=== PATIENT | female | born 1955 | race Caucasian/White ===

== ENCOUNTER → 2017-10-25 11:38 | Outpatient (CLI) | payer OTHER, SELFPAY ==
--- NOTE | 2017-10-25 | DI.MG.S_ITS ---
BILATERAL DIGITAL SCREENING MAMMOGRAM 3D/2D WITH CAD: 10/25/2017 CLINICAL: Routine screening. Personal history of breast cancer. Comparison is made to exams dated: 07/09/2017 mammogram, 12/30/2016 mammogram, 11/18/2016 mammogram, and 10/09/2016 mammogram - [facility]. There are scattered fibroglandular elements in both breasts. Current study was also evaluated with a Computer Aided Detection (CAD) system. There is a linear scar marker overlying the upper inner right breast. There are underlying postsurgical changes including multiple surgical clips and a large post-surgical seroma. There is also diffuse right breast skin thickening and edema. No significant masses, calcifications, or other findings are seen in either breast. IMPRESSION: BENIGN Postsurgical changes of the right breast. There is no mammographic evidence of malignancy. A 1 year screening mammogram is recommended. This exam was interpreted at Station ID: [id number]. NOTE: For mammograms, a report in lay terms will be sent to the patient. Approximately 15% of breast malignancies will not be visualized mammographically. In the management of a palpable breast mass, a negative mammogram must not discourage biopsy of a clinically suspicious lesion. Electronically Signed By: Seth Hess M.D. ecl/:10/25/2017 20:22:19 copy to: Viky Lassiter letter sent: Normal Exam ACR BI-RADS Category 2: Benign Finding(s) 3342F
== END ==
PROVIDERS: PCP Family Medicine; Visit Provider Family Medicine
DX: Z12.31 Encounter for screening mammogram for malignant neoplasm of breast (principal); Z85.3 Personal history of malignant neoplasm of breast
CPT/HCPCS: 77063; 77067

== ENCOUNTER → 2017-11-18 13:00 | Outpatient (CLI) | payer OTHER, SELFPAY | PROVIDERS: PCP Family Medicine | DX: Z23 Encounter for immunization (principal) | CPT/HCPCS: 90471; 90686 ==

== ENCOUNTER → 2018-01-11 08:01 | Outpatient (REF) | payer OTHER, SELFPAY ==
[2018-01-11 08:38] LABS: Cholesterol 194 mg/dL (140-199); HDL Cholesterol 59 mg/dL (40-60); LDL Cholesterol Calculated 112 mg/dL (<100); Triglycerides 114 mg/dL (35-150)
[2018-01-11 10:27] LABS: Thyroid Stimulating Hormone 0.91 uIU/mL (0.47-4.68)
== END ==
LOC: LAB 08:01
PROVIDERS: PCP Family Medicine; Visit Provider Family Medicine
DX: E78.5 Hyperlipidemia, unspecified (principal)
CPT/HCPCS: 80061; 84443

== ENCOUNTER → 2018-02-01 13:22 | Outpatient (CLI) | payer OTHER, SELFPAY | PROVIDERS: PCP Family Medicine; Visit Provider Physician Assistant | DX: R39.9 Unspecified symptoms and signs involving the genitourinary system (principal) | CPT/HCPCS: 87077; 87086; 87186 ==

== ENCOUNTER → 2018-04-29 07:15 | Outpatient (REF) | payer OTHER, SELFPAY ==
[2018-04-29 07:27] LABS: Add Manual Diff / Slide Review NO; Basophils Absolute Auto 100 /uL (0-100); Basophils Percent Auto 1.3 % (0-2); Eosinophils Absolute Auto 500 /uL (0-450); Eosinophils Percent Auto 10.5 % (2-4); Hematocrit 38.2 % (36-46); Hemoglobin 12.9 g/dL (12.0-16.0); Lymphocytes Absolute Auto 1200 /uL (1100-4500); Lymphocytes Percent Auto 22.6 % (25-40); Mean Corpuscular HGB Conc 33.8 % (30-36); Mean Corpuscular Hemoglobin 31.1 PG (26-34); Monocytes Absolute Auto 400 /uL (0-900); Monocytes Percent Auto 8.6 % (3-14); Neutrophils Absolute Auto 2900 /uL (1500-7000); Platelet Count 195 X10^3/uL (150-400); Red Blood Cell Count 4.15 X10^6/uL (4.0-5.2); Red Cell Distribution Width 13.1 % (11.6-14.8); White Blood Cell Count 5.2 X10^3/uL (4.5-11.0)
[2018-04-29 07:32] LABS: Alanine Aminotransferase 27 IU/L (9-52); Albumin 4.1 g/dL (3.5-5.0); Albumin Globulin Ratio 1.5 (1.0-2.8); Alkaline Phosphatase 65 U/L (38-126); Aspartate Aminotransferase 22 IU/L (14-36); Bilirubin Total 0.4 mg/dL (0.2-1.3); Blood Urea Nitrogen 15 mg/dL (7-17); Carbon Dioxide 32 mmol/L (22-32); Chloride 102 mmol/L (98-107); Estimated Glomerular Filt Rate > 60.0 mL/min (>60); Globulin 2.7 g/dL (1.7-4.1); Glucose 106 mg/dL (80-110); HEMOLYSIS < 15 (0-50); Potassium 3.7 mmol/L (3.4-5.1); Sodium 141 mmol/L (137-145); Total Protein 6.8 g/dL (6.3-8.2)
--- NOTE | 2018-04-29 09:57 | PC.NURSE ---
labs stable, provider visit on 05/03
== END ==
LOC: LAB 07:15
PROVIDERS: PCP Family Medicine; Visit Provider Nurse Practitioner Gerontology
DX: C50.911 Malignant neoplasm of unspecified site of right female breast (principal)
CPT/HCPCS: 36415; 80053; 85025

== ENCOUNTER → 2018-06-03 10:27 | Outpatient (CLI) | payer OTHER, SELFPAY ==
--- NOTE | 2018-06-03 10:29 | DI.MG.S_ITS ---
UNILATERAL RIGHT DIGITAL DIAGNOSTIC MAMMOGRAM 3D/2D POST LUMPECTOMY: 06/03/2018 CLINICAL: Right breast cancer surveillance. Comparison is made to exams dated: 10/25/2017 mammogram, 07/09/2017 mammogram, and 12/30/2016 mammogram - [facility]. There are scattered fibroglandular elements in right breast. There is an oval equal density asymmetry with an indistinct margin in the right breast at 1 o'clock posterior depth. This is not significantly changed. There are surgical clips, a seroma, architectural distortion, a post-surgical scar, skin retraction, and trabecular thickening associated with the asymmetry. No other significant masses or calcifications are seen in the breast. IMPRESSION: The oval equal density asymmetry in the right breast is consistent with a post-surgical scar and is benign. There is no mammographic evidence of malignancy. Return to annual mammogram screening schedule is recommended. This exam was interpreted at Station ID: [id number]. NOTE: For mammograms, a report in lay terms will be sent to the patient. Approximately 15% of breast malignancies will not be visualized mammographically. In the management of a palpable breast mass, a negative mammogram must not discourage biopsy of a clinically suspicious lesion. Electronically Signed By: Flo Troy M.D. ddp/bela:06/03/2018 10:57:14 copy to: CHARLIE SANTANA copy to: Arlet Dominguez M.D., [facility] [place] [facility], ph: [phone], fax: [phone] letter sent: Normal Exam ACR BI-RADS Category 2: Benign Finding(s) 334F
== END ==
PROVIDERS: PCP Family Medicine; Visit Provider Surgery
DX: C50.911 Malignant neoplasm of unspecified site of right female breast (principal); N64.89 Other specified disorders of breast
CPT/HCPCS: 77065; G0279

== ENCOUNTER → 2018-10-26 15:12 | Outpatient (CLI) | payer OTHER, SELFPAY ==
--- NOTE | 2018-10-26 | DI.MG.S_ITS ---
BILATERAL DIGITAL SCREENING MAMMOGRAM 3D/2D WITH CAD POST LUMPECTOMY: 10/26/2018 CLINICAL: Routine screening. Personal history of right breast cancer. Comparison is made to exams dated: 10/25/2017 mammogram, 12/07/2016 breast MRI, and 07/30/2015 mammogram - [facility]. There are scattered fibroglandular elements in both breasts. Current study was also evaluated with a Computer Aided Detection (CAD) system. There is a stable oval equal density asymmetry with an indistinct margin in the right breast at 1 o'clock posterior depth. There are surgical clips, a seroma, architectural distortion, a post-surgical scar, skin retraction, and trabecular thickening associated with the asymmetry. No other significant masses, calcifications, or other findings are seen in either breast. IMPRESSION: The stable oval equal density asymmetry in the right breast is consistent with a post-surgical scar and is benign. There is no mammographic evidence of malignancy. A 1 year screening mammogram is recommended. This exam was interpreted at Station ID: [id number]. NOTE: For mammograms, a report in lay terms will be sent to the patient. Approximately 15% of breast malignancies will not be visualized mammographically. In the management of a palpable breast mass, a negative mammogram must not discourage biopsy of a clinically suspicious lesion. Electronically Signed By: Conner Ortega M.D. slc/:10/26/2018 18:11:45 copy to: CHARLIE SANTANA copy to: Arlet Dominguez M.D., [facility], ph: [phone], fax: [phone] letter sent: Normal Exam ACR BI-RADS Category 2: Benign Finding(s) 3341M
== END ==
PROVIDERS: PCP Family Medicine; Visit Provider Family Medicine
DX: Z85.3 Personal history of malignant neoplasm of breast (principal)
CPT/HCPCS: 77063; 77067

== ENCOUNTER → 2018-11-04 11:44 | Outpatient (CLI) | payer OTHER, SELFPAY ==
--- NOTE | 2018-11-04 11:45 | DI.US.S_ITS ---
PROCEDURE: US PERIPH VENOUS LOW EXTREM RT INDICATIONS: RT LEG SWELLING TECHNIQUE: Real-time imaging, as well as color and pulse Doppler interrogation, were performed of the lower extremity deep veins from the inguinal ligament to the popliteal fossa. COMPARISON: None. FINDINGS: The common femoral, femoral and popliteal veins are normally compressible, and free of intraluminal thrombus. Color and pulse Doppler demonstrate normal phasic intraluminal flow. There is normal augmentation response to distal compression maneuver. A portion of the mid to distal right femoral vein is not seen. IMPRESSION: Negative for deep venous thrombosis. Dictated by: Waldemar Quezada M.D. on 11/04/2018 at 13:26 Approved by: Waldemar Quezada M.D. on 11/04/2018 at 13:26
== END ==
PROVIDERS: PCP Family Medicine; Visit Provider Internal Medicine Hematology & Oncology
DX: C50.911 Malignant neoplasm of unspecified site of right female breast (principal); M79.89 Other specified soft tissue disorders
CPT/HCPCS: 93971

== ENCOUNTER → 2018-12-01 15:55 | Outpatient (CLI) | payer OTHER, SELFPAY | PROVIDERS: PCP Family Medicine | DX: Z23 Encounter for immunization (principal) | CPT/HCPCS: 90471; 90662 ==

== ENCOUNTER → 2019-10-19 10:49 | Outpatient (CLI) | payer OTHER, SELFPAY ==
--- NOTE | 2019-10-19 10:51 | DI.MG.S_ITS ---
BILATERAL DIGITAL SCREENING MAMMOGRAM 3D/2D WITH CAD POST LUMPECTOMY: 10/19/2019 CLINICAL: Routine screening. Personal history of right breast cancer. Comparison is made to exams dated: 10/26/2018 mammogram, 10/25/2017 mammogram, 10/09/2016 mammogram, 06/03/2018 mammogram, and 07/30/2015 mammogram - [facility]. There are scattered fibroglandular elements in both breasts. Current study was also evaluated with a Computer Aided Detection (CAD) system. There are benign post operative findings in the right breast. No significant masses, calcifications, or other findings are seen in either breast. There has been no significant interval change. IMPRESSION: BENIGN There is no mammographic evidence of malignancy. A 1 year screening mammogram is recommended. This exam was interpreted at Station ID: [id number]. NOTE: For mammograms, a report in lay terms will be sent to the patient. Approximately 15% of breast malignancies will not be visualized mammographically. In the management of a palpable breast mass, a negative mammogram must not discourage biopsy of a clinically suspicious lesion. Electronically Signed By: Conner Ortega M.D. [facility]/bela:10/19/2019 15:05:44 copy to: Arlet Dominguez M.D., [facility] [employer], ph: [phone], fax: [phone] letter sent: Normal Exam ACR BI-RADS Category 2: Benign Finding(s) 3342F
== END ==
PROVIDERS: PCP Family Medicine; Referring Provider Internal Medicine Hematology & Oncology; Visit Provider Internal Medicine Hematology & Oncology
DX: Z12.31 Encounter for screening mammogram for malignant neoplasm of breast (principal); C50.911 Malignant neoplasm of unspecified site of right female breast; Z17.0 Estrogen receptor positive status [ER+]
CPT/HCPCS: 77063; 77067

== ENCOUNTER → 2019-12-12 | Outpatient (CLI) | payer OTHER, SELFPAY | PROVIDERS: PCP Family Medicine; Referring Provider Internal Medicine; Visit Provider Internal Medicine | DX: Z23 Encounter for immunization (principal) | CPT/HCPCS: 90471; 90662 ==

== ENCOUNTER → 2020-03-07 12:19 | Outpatient (CLI) | payer OTHER, SELFPAY ==
[2020-03-07] MEDS: COVID-19 VACC(MODERNA-1)/PF 100 MCG/0.5 ML VIAL IM (12:42)
== END ==
PROVIDERS: PCP Family Medicine; Visit Provider Internal Medicine
DX: Z23 Encounter for immunization (principal)
CPT/HCPCS: 0011A; 91301

== ENCOUNTER → 2020-04-03 12:20 | Outpatient (CLI) | payer OTHER, SELFPAY ==
[2020-04-03] MEDS: COVID-19 VACC #2, MRNA(MOD) 100 MCG/0.5 ML VIAL IM (12:26)
== END ==
PROVIDERS: PCP Family Medicine; Visit Provider Internal Medicine
DX: Z23 Encounter for immunization (principal)
CPT/HCPCS: 0012A; 91301

== ENCOUNTER → 2020-10-03 15:40 | Outpatient (CLI) | payer OTHER, SELFPAY | PROVIDERS: PCP Family Medicine; Visit Provider Physician Assistant | DX: R30.9 Painful micturition, unspecified (principal) | CPT/HCPCS: 87086 ==

== ENCOUNTER → 2020-10-21 11:01 | Outpatient (CLI) | payer OTHER, SELFPAY ==
--- NOTE | 2020-10-21 | DI.MG.S_ITS ---
BILATERAL DIGITAL SCREENING MAMMOGRAM 3D/2D WITH CAD: 10/21/2020 CLINICAL: Routine screening. Personal history of right breast cancer. Comparison is made to exams dated: 10/19/2019 mammogram, 10/26/2018 mammogram, and 06/03/2018 mammogram - [facility]. There are scattered fibroglandular elements in both breasts. Current study was also evaluated with a Computer Aided Detection (CAD) system. There are benign post operative findings in the right breast. No significant masses, calcifications, or other findings are seen in either breast. There has been no significant interval change. IMPRESSION: BENIGN There is no mammographic evidence of malignancy. A 1 year screening mammogram is recommended. This exam was interpreted at Station ID: [id number]. NOTE: For mammograms, a report in lay terms will be sent to the patient. Approximately 15% of breast malignancies will not be visualized mammographically. In the management of a palpable breast mass, a negative mammogram must not discourage biopsy of a clinically suspicious lesion. Electronically Signed By: Flo diamond/bela:10/21/2020 12:07:21 copy to: Arlet Dominguez M.D. letter sent: Normal Exam ACR BI-RADS Category 2: Benign Finding(s) 3342F
== END ==
PROVIDERS: PCP Family Medicine; Referring Provider Internal Medicine Hematology & Oncology; Visit Provider Internal Medicine Hematology & Oncology
DX: Z12.31 Encounter for screening mammogram for malignant neoplasm of breast (principal); Z85.3 Personal history of malignant neoplasm of breast
CPT/HCPCS: 77063; 77067

== ENCOUNTER → 2021-01-02 12:02 | Outpatient (CLI) | payer OTHER, SELFPAY | PROVIDERS: PCP Family Medicine; Referring Provider Internal Medicine; Visit Provider Internal Medicine | DX: Z23 Encounter for immunization (principal) | CPT/HCPCS: 90471; 90662 ==

== ENCOUNTER → 2021-01-10 14:27 | Outpatient (CLI) | payer OTHER, SELFPAY ==
[2021-01-10] MEDS: COVID-19 VACC #3, MRNA(MOD) 50 MCG/0.25 ML VIAL IM (14:31)
== END ==
PROVIDERS: PCP Family Medicine; Visit Provider Internal Medicine
DX: Z23 Encounter for immunization (principal)
CPT/HCPCS: 0013A; 91301

== ENCOUNTER 2021-04-24 01:53 | Observation (INO) | payer OTHER, SELFPAY ==
[2021-04-24] VITALS (10 sets, daily range): BP systolic 111–220; BP diastolic 68–104; PULSE 56–74; RESP 12–22; TEMP 36.3–37.1; O2SAT 94–99; BMI 38.7
--- NOTE | 2021-04-24 02:40 | ED_ITS ---
HPI - Abdominal Pain <Gale Estrada DO - Last Filed: 04/24/21 06:07> General Chief Complaint: Abdominal Pain Stated Complaint: something stuck in esopogeaus Time Seen by Provider: 04/24/21 02:27 Source: patient Mode of arrival: Ambulatory Limitations: no limitations History of Present Illness HPI narrative: This is a 65-year-old female comes in with complaint of chicken stuck in her esophagus. It started about 6:00 a.m. this evening while she was eating. She has had this happen multiple times in the past. Her last episode where she required EGD and dilation was in 2017. Patient states she was found to have eosinophilic esophagitis at that time as well. She has tried to pass the chicken herself at home but continues to have to spit up her own saliva and secretions and does has not been successful. She denies any other symptoms. She is on citalopram, hydrochlorothiazide for blood pressure and letrozole for breast cancer. She denies any other intra-abdominal surgeries or cardiac history. She is a former smoker, occasional alcohol, no illicit. Related Data Home Medications Medication Instructions Recorded Confirmed cholecalciferol (vitamin D3) 125 5,000 unit PO DAILY 09/23/17 04/24/21 mcg (5,000 unit) capsule Respironics DreamStation CPAP #1 ea 05/11/18 04/24/21 Previous Rx's Medication Instructions Recorded ketoconazole 2 % topical cream 1 applic TOPICAL DAILY #30 g 07/25/19 albuterol sulfate 90 mcg/actuation 1 puff INHALATION Q4H PRN #1 inh 03/26/20 aerosol inhaler (Proventil HFA) letrozole 2.5 mg tablet (Femara) 2.5 mg PO DAILY #90 tab 01/09/21 hydrochlorothiazide 50 mg tablet 50 mg PO QDAY #90 tab 03/10/21 citalopram 10 mg tablet See Rx Instructions .ROUTE 03/31/21 .COMPLEX #30 tab famotidine 20 mg tablet 20 mg PO BEDTIME #90 tab 04/24/21 (Zantac-360 (famotidine)) Allergies Allergy/AdvReac Type Severity Reaction Status Date / Time No Known Drug Allergies Allergy Verified 12/11/20 13:03 Review of Systems <DO Johanna Hamilton Last Filed: 04/24/21 06:07> Review of Systems ROS Unobtainable: All systems reviewed & are unremarkable except as noted in HPI and below Patient History <Gale Estrada DO - Last Filed: 04/24/21 06:07> Medical History Asthma (~1994) Chicken pox (~1958) Depression (~1989) Excessive daytime sleepiness Hypertension (~1999) Measles (~1958) snowmaker associated with adverse incidents Morbid obesity with body mass index (BMI) of 40.0 to 49.9 Mumps (~1958) Obstructive sleep apnea of adult Osteoarthritis (~2006) Osteoarthritis of knee (~2006) Primary insomnia Snoring Surgical History Anesthesia History of knee replacement (06/26/15) S/P total knee arthroplasty Status post delivery (~1982) Status post delivery (~1985) Status post cholecystectomy (~2004) Status post colonoscopy (~2003) Status post endoscopy (~2003) Status post endoscopy (~2002) Family History Father Cancer Hypertension Grandmother Cancer Mother Multiple sclerosis Social History details: lives in [place] lives independently: Yes caregiver/support person: No housing: apartment Smoking Status: Former smoker Smoking Status: Former smoker alcohol intake frequency: a few times a month Substance Use Type: does not use Exam <Gale Estrada DO - Last Filed: 04/24/21 06:07> Narrative Exam Narrative: GENERAL: Alert and oriented x three, female in mild distress HEENT: Head normocephalic, atraumatic, EOMI, pupils reactive, face symmetric, moist mucous membranes NECK: Supple, full range of motion CARDIOVASCULAR: Regular rate and rhythm without murmurs, rubs or gallops. RESPIRATORY: Breath sounds equal bilaterally, no wheezes rales or rhonchi. ABDOMEN: Soft, nontender. Normoactive bowel sounds all 4 quadrants. No guarding or rebound, rigidity, no mass EXTREMITIES: Normal range of motion, no clubbing or edema. Neurovascularly intact NEUROLOGICAL: Cranial nerves II through XII grossly intact. Moving all extremities SKIN: Warm, dry, no petechiae, no rashes or lesions. Initial Vital Signs Initial Vital Signs: Vital Signs Pulse Rate 74 04/24/21 01:58 Pulse Oximetry 98 04/24/21 01:58 <Farhad Jay MD - Last Filed: 04/24/21 20:27> Initial Vital Signs Initial Vital Signs: Vital Signs Pulse Rate 74 04/24/21 01:58 Pulse Oximetry 98 04/24/21 01:58 Course <Gale Estrada DO - Last Filed: 04/24/21 06:07> Orders Ordered: Discontinued Medications Glucagon (Glucagon,Human Recombinant 1 Mg/Ml Vial) 1 mg IV NOW ONE Stop: 04/24/21 02:33 Last Admin: 04/24/21 02:43 Dose: 1 mg Documented by: BELGICAROYLE Lactated Ringer's (Lactated Ringers) 1,000 mls @ 42 mls/hr IV NOW ONE Stop: 04/25/21 07:29 Last Admin: 04/24/21 07:44 Dose: 42 mls/hr Documented by: POLO Reevaluation(s) Reevaluation #1: Patient attempted heel strike with josh mary without improvement. Time: 02:35 Reevaluation #2: Patient did not have any resolution with glucagon and josh mary. Plan for EGD this morning and boarding in department until then. Patient agreeable and comfortable with plan. Consultations Consultation #1: Dr. Goncalves, general surgery. Plan for EGD for food bolus. Patient's COVID swab is negative. Vital Signs Vital signs: Vital Signs - 8 hr 04/24/21 02:00 Temperature 98.1 F Pulse Rate 72 Respiratory Rate 18 Blood Pressure 220/104 H Pulse Oximetry 98 <Farhad Jay MD - Last Filed: 04/24/21 20:27> Orders Ordered: Discontinued Medications Glucagon (Glucagon,Human Recombinant 1 Mg/Ml Vial) 1 mg IV NOW ONE Stop: 04/24/21 02:33 Last Admin: 04/24/21 02:43 Dose: 1 mg Documented by: BELGICAROYLE Lactated Ringer's (Lactated Ringers) 1,000 mls @ 42 mls/hr IV NOW ONE Stop: 04/25/21 07:29 Last Admin: 04/24/21 07:44 Dose: 42 mls/hr Documented by: GBAMKRISTIN Vital Signs Vital signs: Vital Signs - 8 hr 04/24/21 02:00 Temperature 98.1 F Pulse Rate 72 Respiratory Rate 18 Blood Pressure 220/104 H Pulse Oximetry 98 MDM - Abdominal Pain <Gale EstradaDO - Last Filed: 04/24/21 06:07> Lab Data Labs: Lab Results 04/24/21 Range/Units 02:48 SARS-CoV-2 (PCR) Negative (Negative) [facility] Narrative Medical decision making narrative: This is a pleasant 65-year-old female with a history of food impaction and prior dilations any eosinophilic esophagitis. Patient states last episode was around 2017. To try be multiple things at home without success and has had persistent symptoms since 6:00 p.m.. Patient attempted heel strike also followed by glucagon with josh mary immediately for without success. COVID swab was sent and is negative. Spoke with general surgery who plans to scope the patient today. We will board the patient in the emergency department until that time. Patient signed out to Dr. Jay while awaiting OR for EGD for food impact ion. <Farhad Jay MD - Last Filed: 04/24/21 20:27> Lab Data Labs: Lab Results 04/24/21 Range/Units 02:48 SARS-CoV-2 (PCR) Negative (Negative) [facility] Narrative Medical decision making narrative: This is a pleasant 65-year-old female with a history of food impaction and prior dilations any eosinophilic esophagitis. Patient states last episode was around 2017. To try be multiple things at home without success and has had persistent symptoms since 6:00 p.m.. Patient attempted heel strike also followed by glucagon with josh mary immediately for without success. COVID swab was sent and is negative. Spoke with general surgery who plans to scope the patient today. We will board the patient in the emergency department until that time. Patient signed out to Dr. Jay while awaiting OR for EGD for food impaction. Disposition occurred before my involvement with this patient.Johanna Adam MD Discharge Plan Departure Patient Disposition: Admitted to Surgery Clinical Impression: Food impaction of esophagus Admit Date/Time: 04/24/21 07:01 Admit Provider: Mary Goncalves
[2021-04-24] MEDS: GLUCAGON,HUMAN RECOMBINANT 1 MG/ML VIAL IV (02:43)
[2021-04-24 03:10] LABS: COVID19 -Nasal RAPID Negative (Negative)
--- NOTE | 2021-04-24 07:34 | PM.HP.1 ---
History of Present Illness History of Present Illness Date Patient Seen: 04/24/21 Time Patient Seen: 07:34 Date of Onset of Symptoms: 04/23/21 Chief complaint: something stuck in esopogeaus Narrative: recurrent food lodged in esophagus. Has had previous dilations as well, last one over 5 years ago. All benign strictures. Mild chest discomfort, unable to manage on secretions. 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 Morbid obesity with body mass index (BMI) of 40.0 to 49.9 Mumps (~1958) Obstructive sleep apnea of adult Osteoarthritis (~2006) Osteoarthritis of knee (~2006) Primary insomnia Snoring Surgical History Anesthesia History of knee replacement (06/26/15) S/P total knee arthroplasty Status post delivery (~1982) Status post delivery (~1985) Status post cholecystectomy (~2004) Status post colonoscopy (~2003) Status post endoscopy (~2003) Status post endoscopy (~2002) Family & Social History Family History Father Cancer Hypertension Grandmother Cancer Mother Multiple sclerosis Social History: lives independently Yes caregiver/support person No Safety & Behavioral: Feels Safe in Current Yes Environment Tobacco & Substance use: Smoking Status Former smoker alcohol intake frequency a few times a month Substance Use Type does not use Meds Home Medications and Allergies Home Medications Medication Instructions Recorded Confirmed Type cholecalciferol (vitamin D3) 125 5,000 unit PO DAILY 09/23/17 04/24/21 History mcg (5,000 unit) capsule Respironics DreamStation CPAP #1 ea 05/11/18 04/24/21 History ketoconazole 2 % topical cream 1 applic TOPICAL DAILY #30 g 07/25/19 04/24/21 Rx albuterol sulfate 90 mcg/actuation 1 puff INHALATION Q4H PRN #1 inh 03/26/20 04/24/21 Rx aerosol inhaler (Proventil HFA) letrozole 2.5 mg tablet (Femara) 2.5 mg PO DAILY #90 tab 11/04/21 02/17/22 Rx hydrochlorothiazide 50 mg tablet 50 mg PO QDAY #90 tab 03/10/21 04/24/21 Rx citalopram 10 mg tablet See Rx Instructions .ROUTE 03/31/21 04/24/21 Rx .COMPLEX #30 tab Allergies Allergy/AdvReac Type Severity Reaction Status Date / Time No Known Drug Allergies Allergy Verified 12/11/20 13:03 Review of Systems Review of Systems ROS: Yes All systems reviewed with the patient and are negative except as otherwise documented Exam Vital Signs (past 8 hours): - 04/24/21 01:58 04/24/21 02:00 04/24/21 06:33 Temperature 98.1 F Pulse Rate 74 72 Respiratory Rate 18 Blood Pressure 220/104 H Pulse Oximetry 98 98 99 04/24/21 06:34 Temperature Pulse Rate 59 L Respiratory Rate Blood Pressure 183/86 H Pulse Oximetry 99 Oxygen Delivery Method Room Air Const General: cooperative, healthy appearing and comfortable HENAZ Head: normocephalic and atraumatic Eyes General: appearance normal, both eyes and all related structures Neck Neck: trachea midline Chest Chest: normal inspection of the chest Resp Effort & Inspection: normal respiratory effort and able to speak in complete sentences Cardio Rate: regular rate Rhythm: regular rhythm GI Inspection: normal to inspection Palpation: soft Skin General: turgor normal and atrophy Neuro General: patient awake and patient oriented x3 Extrem General: full ROM Psych Mental Status: mental status grossly normal Judgment: judgment good Objective Labs Labs: Laboratory Results - last 24 hr 04/24/21 02:48 SARS-CoV-2 (PCR) Negative Assessment & Plan Assessment & Plan narrative: Recurrent food bolus in esophagus, likely benign stricture Plan: EGD with removal of foreign body. COVID-19 COVID-19 status: Negative Time Spent With Patient Time with patient: less than 30 minutes Critical Care time: I spent a total of [] minutes of critical care time on this patient's care today; this time is exclusive of procedural time.
[2021-04-24] MEDS: LACTATED RINGERS 1,000 ML 42 ML IV (07:44)
--- NOTE | 2021-04-24 07:59 | PM.OP.ENDO ---
Operative Date/Time/Diagnoses Date of procedure: 04/24/21 Time of procedure: 07:59 Pre-op diagnosis: Foreign body in the esophagus Post-op diagnosis: same Procedure & Clinicians Study performed: EGD with removal of foreign body Same procedure as scheduled: Yes Indications: Foreign body in the esophagus Surgeon: Mary Goncalves Procedure Notes SCOAP/Timeout: Done Procedure in detail: Prep diagnosis: Esophageal foreign body Postop diagnosis: Same Operative procedure: EGD with removal of foreign body Surgeon: Ami Goncalves MD Anesthetic: Mac Findings: Small piece of chicken and the distal esophagus. Small hiatal hernia and associated mild benign stricture Procedure: Patient placed in a supine position. Anesthetic was provided, scope inserted into the esophagus and advanced into the stomach after pushing the distal foreign body into the stomach. No evidence of esophagitis. Small hiatal hernia. Mild distal benign stricture. Scope was extracted without incident. Patient was recovered in PACU Impression: Distal foreign body related to a mild esophageal stricture Plan: H2 blockers for decreased reflux. Follow-up the surgery for evaluation repeat EGD and esophageal dilation in 1 year. Findings: stricture Specimen(s): other (chicken) Complications: none Impression: Benign distal esophageal stricture causing food impaction. Recommend H2 arash therapy and repeat EGD 1 year with possible dilation Post-procedure Recommendations: EGD in 1 year
--- NOTE | 2021-04-24 08:30 | SUR.PHASEI ---
SBAR report at bedside to Laura GATES. Pt awake, alert, tolerating sips of water without problems. Good cough. clear lungs.
--- NOTE | 2021-04-24 10:10 | SUR.PHASEII ---
Ride arrived, pt ready to go, belly soft, denied pain discomfort and swallow speech intact.. Left unit in stable condition.
== END 2021-04-24 09:30 | disposition home or self-care (01) ==
LOC: ED 07:01 → AC 07:02
PROVIDERS: Admitting Provider Surgery; Emergency Provider Emergency Medicine; PCP Family Medicine; Referring Provider Emergency Medicine; Visit Provider Surgery
PROC: 0DJ08ZZ Inspection of Upper Intestinal Tract, Via Natural or Artificial Opening Endoscopic (ICD-10-PCS; CPT 43235; principal; 2021-04-24 07:30)
DX: T18.128A Food in esophagus causing other injury, initial encounter (principal); Z20.822 Contact with and (suspected) exposure to COVID-19; K44.9 Diaphragmatic hernia without obstruction or gangrene; K22.2 Esophageal obstruction
CPT/HCPCS: 43247; 87635; 96374; 99218; 99284; C9803; G0378; J1610; J2250; J2704

== ENCOUNTER → 2021-05-14 07:14 | Outpatient (CLI) | payer OTHER, SELFPAY ==
[2021-05-14 07:27] LABS: Add Manual Diff / Slide Review NO; Basophils Absolute Auto 0 /uL (0-100); Basophils Percent Auto 0.8 % (0-2); Eosinophils Absolute Auto 400 /uL (0-450); Eosinophils Percent Auto 6.8 % (2-4); Hematocrit 39.5 % (36-46); Hemoglobin 13.4 g/dL (12.0-16.0); Lymphocytes Absolute Auto 1200 /uL (1100-4500); Mean Corpuscular HGB Conc 33.9 % (30-36); Mean Corpuscular Hemoglobin 30.7 PG (26-34); Mean Corpuscular Volume 90.6 fL (80-100); Monocytes Absolute Auto 500 /uL (0-900); Monocytes Percent Auto 8.9 % (3-14); Neutrophils Absolute Auto 3100 /uL (1500-7000); Neutrophils Percent Auto 59.5 % (50-75); Platelet Count 224 X10^3/uL (150-400); Red Blood Cell Count 4.36 X10^6/uL (4.0-5.2); Red Cell Distribution Width 13.8 % (11.6-14.8); White Blood Cell Count 5.2 X10^3/uL (4.5-11.0)
[2021-05-14 07:41] LABS: Alanine Aminotransferase 19 IU/L (<35); Albumin 4.4 g/dL (3.5-5.0); Albumin Globulin Ratio 1.4 (1.0-2.8); Alkaline Phosphatase 74 U/L (38-126); Aspartate Aminotransferase 37 IU/L (14-36); BUN Creatinine Ratio 27.8 (6-22); Bilirubin Total 0.7 mg/dL (0.2-1.3); Blood Urea Nitrogen 20 mg/dL (7-17); Calcium 9.6 mg/dL (8.4-10.2); Carbon Dioxide 34 mmol/L (22-32); Chloride 103 mmol/L (98-107); Estimated Glomerular Filt Rate > 60.0 mL/min (>60); Globulin 3.2 g/dL (1.7-4.1); Glucose 106 mg/dL (80-110); HEMOLYSIS < 15 (0-50); Potassium 3.8 mmol/L (3.4-5.1); Sodium 140 mmol/L (137-145); Total Protein 7.6 g/dL (6.3-8.2)
== END ==
PROVIDERS: PCP Family Medicine; Referring Provider Internal Medicine Hematology & Oncology; Visit Provider Internal Medicine Hematology & Oncology
DX: C50.911 Malignant neoplasm of unspecified site of right female breast (principal)
CPT/HCPCS: 80053; 85025

== ENCOUNTER → 2021-05-29 11:11 | Outpatient (CLI) | payer OTHER, SELFPAY | PROVIDERS: PCP Family Medicine; Referring Provider Internal Medicine Hematology & Oncology; Visit Provider Internal Medicine Hematology & Oncology | DX: Z13.820 Encounter for screening for osteoporosis (principal); Z78.0 Asymptomatic menopausal state | CPT/HCPCS: 77080 ==

== ENCOUNTER → 2021-10-22 10:56 | Outpatient (CLI) | payer OTHER, SELFPAY ==
--- NOTE | 2021-10-22 | DI.MG.S_ITS ---
BILATERAL DIGITAL SCREENING MAMMOGRAM 3D/2D WITH CAD: 10/22/2021 CLINICAL: Routine screening. Personal history of right breast cancer. Comparison is made to exams dated: 10/21/2020 mammogram, 10/19/2019 mammogram, and 10/26/2018 mammogram - . There are scattered fibroglandular elements in both breasts. Current study was also evaluated with a Computer Aided Detection (CAD) system. There are benign post operative findings in the right breast. No significant masses, calcifications, or other findings are seen in either breast. There has been no significant interval change. IMPRESSION: BENIGN There is no mammographic evidence of malignancy. A 1 year screening mammogram is recommended. This exam was interpreted at Station ID: [id number]. NOTE: For mammograms, a report in lay terms will be sent to the patient. Approximately 15% of breast malignancies will not be visualized mammographically. In the management of a palpable breast mass, a negative mammogram must not discourage biopsy of a clinically suspicious lesion. Electronically Signed By: Viky contreras/bela:10/22/2021 11:45:11 copy to: Arlet Dominguez M.D. letter sent: Normal Exam ACR BI-RADS Category 2: Benign Finding(s) 3342F
== END ==
PROVIDERS: PCP Family Medicine; Referring Provider Family Medicine; Visit Provider Family Medicine
DX: Z12.31 Encounter for screening mammogram for malignant neoplasm of breast (principal); Z85.3 Personal history of malignant neoplasm of breast
CPT/HCPCS: 77063; 77067

== ENCOUNTER → 2021-12-26 15:02 | Outpatient (CLI) | payer OTHER, SELFPAY | PROVIDERS: PCP Family Medicine; Referring Provider Internal Medicine; Visit Provider Internal Medicine | DX: Z23 Encounter for immunization (principal) | CPT/HCPCS: 90471; 90662 ==

== ENCOUNTER → 2022-05-15 06:57 | Outpatient (CLI) | payer OTHER, SELFPAY ==
[2022-05-15 07:50] LABS: Cholesterol 250 mg/dL (140-199); HDL Cholesterol 98 mg/dL (40-60); LDL Cholesterol Calculated 134 mg/dL (<100); Triglycerides 88 mg/dL (35-150)
[2022-05-15 10:02] LABS: Microalbumin Urine Random 2.3 mg/dL (0-1.6)
[2022-05-15 12:53] LABS: Creatinine Urine Random 590.2 mg/dL; Microalbumi Creatinin Ratio Ur 3.8 ug/mg CR (<30)
== END ==
PROVIDERS: PCP Family Medicine; Referring Provider Family Medicine; Visit Provider Family Medicine
DX: I10 Essential (primary) hypertension (principal)
CPT/HCPCS: 80061; 82043; 82570

== ENCOUNTER → 2022-10-28 16:01 | Outpatient (CLI) | payer MEDICARE, OTHER, SELFPAY ==
--- NOTE | 2022-10-28 16:03 | DI.MG.S_ITS ---
BILATERAL DIGITAL SCREENING MAMMOGRAM 3D/2D WITH CAD POST LUMPECTOMY: 10/28/2022 CLINICAL: Routine screening. Personal history of right breast cancer. Comparison is made to exams dated: 10/22/2021 mammogram, 10/21/2020 mammogram, 10/19/2019 mammogram, and 10/26/2018 mammogram - [facility]. There are scattered areas of fibroglandular density in both breasts (category b / 25%-50% glandular tissue). Current study was also evaluated with a Computer Aided Detection (CAD) system. There are benign post operative findings in the right breast. No significant masses, calcifications, or other findings are seen in either breast. There has been no significant interval change. IMPRESSION: BENIGN There is no mammographic evidence of malignancy. A 1 year screening mammogram is recommended. This exam was interpreted at Station ID: [id number]. NOTE: For mammograms, a report in lay terms will be sent to the patient. Approximately 15% of breast malignancies will not be visualized mammographically. In the management of a palpable breast mass, a negative mammogram must not discourage biopsy of a clinically suspicious lesion. Electronically Signed By: Conner ba/bela:10/29/2022 12:21:12 copy to: Arlet Dominguez M.D. letter sent: Normal Exam ACR BI-RADS Category 2: Benign Finding(s) 3342F
== END ==
PROVIDERS: PCP Family Medicine; Referring Provider Family Medicine; Visit Provider Family Medicine
DX: Z12.31 Encounter for screening mammogram for malignant neoplasm of breast (principal); C50.911 Malignant neoplasm of unspecified site of right female breast
CPT/HCPCS: 77063; 77067

== ENCOUNTER → 2022-11-06 09:46 | Outpatient (CLI) | payer MEDICARE, OTHER, SELFPAY ==
[2022-11-06 11:29] LABS: Cholesterol 231 mg/dL (140-199); HDL Cholesterol 78 mg/dL (40-60); LDL Cholesterol Calculated 136 mg/dL (<100); Triglycerides 86 mg/dL (35-150)
== END ==
PROVIDERS: PCP Family Medicine; Referring Provider Family Medicine; Visit Provider Family Medicine
DX: E78.5 Hyperlipidemia, unspecified (principal)
CPT/HCPCS: 36415; 80061

== ENCOUNTER → 2022-12-24 14:19 | Outpatient (CLI) | payer MEDICARE, OTHER, SELFPAY | PROVIDERS: PCP Family Medicine; Referring Provider Family Medicine; Visit Provider Family Medicine | DX: Z23 Encounter for immunization (principal) | CPT/HCPCS: 90471; 90662 ==

== ENCOUNTER 2023-02-23 07:18 | Day surgery (SDC) | payer MEDICARE, OTHER, SELFPAY ==
--- NOTE | 2023-02-23 | PATH_ITS ---
[facility] Accession Number: [id number] No. of containers..02 Tissue . 01 Material submitted: . PART A: esophagus - ESOPHAGEAL BIOPSY PART B: colon - SIGMOID POLYPS . 01 Diagnosis: A. ESOPHAGUS, BIOPSY: - SQUAMOUS EPITHELIUM WITH INCREASED INTRAEPITHELIAL EOSINOPHILS (UP TO 75 EOSINOPHILS IN HIGH-POWERED FIELD 40X), SEE COMMENT. - NEGATIVE FOR DYSPLASIA AND NEGATIVE FOR MALIGNANCY. -- B. COLON, SIGMOID POLYPS, BIOPSIES: - TUBULAR ADENOMA/S IN THREE COLONIC FRAGMENTS. -- Comment for part A: These findings can be seen in eosinophilic esophagitis in the right clinical an endoscopic setting. TXN 03/04/2023 1306 Local . 01 Electronically signed: . Hannah Brooke MD, Pathologist NPI- [id number] . 01 Gross description: . Part A: ESOPHAGEAL BIOPSY: Received in formalin are 3 fragment(s) of mirza, soft tissue measuring 0.2 x 0.2 x 0.2 cm to 0.4 x 0.2 x 0.2 cm submitted entirely in 1 cassette(s) Part B: SIGMOID POLYPS: Received in formalin are 4 fragment(s) of mirza, soft tissue measuring 0.1 x 0.1 x 0.1 cm to 0.4 x 0.3 x 0.2 cm submitted entirely in 1 cassette(s) /KIRTI 02/24/2023 1904 Local . 01 Pathologist provided ICD-10: Z12.11, K20.0, K21.00 . 01 CPT . 163492, 473609 Specimen Comment: A courtesy copy of this report has been sent to [phone] Performed at: 01 LabCounts include 234 beds at the [facility] Cyt[facility] [address] [place] [address], [place], [place] [id number] MD Flo Dunn MD Phone: [phone]
[2023-02-23 07:50] VITALS: BP 166/94; PULSE 64; RESP 21; TEMP 36.4; O2SAT 98; BMI 39.9
[2023-02-23] MEDS: LACTATED RINGERS 1,000 ML 42 ML IV (07:59)
--- NOTE | 2023-02-23 08:02 | P.HP_ITS ---
History of Present Illness History of Present Illness Date Patient Seen: 02/23/23 Time Patient Seen: 08:02 Chief complaint: EGD & Screening Colonoscopy Narrative: 67-year-old woman here for screening colonoscopy and esophagoduodenoscopy. She has a history of eosinophilic esophagitis and colonic polyps. Seen 1 year ago with a food impaction of the esophagus. Symptoms have improved over the past year but she occasionally feels that food is becoming hung up in her lower esophagus. She would a prior esophageal dilation many years ago. Last colonoscopy approximately 7 years ago. No family history of intestinal malignancy. No abdominal concerns today including but not limited to unintentional weight loss, blood per rectum abdominal pain. 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 Morbid obesity with body mass index (BMI) of 40.0 to 49.9 Snoring Osteoarthritis (~2006) Asthma (~1994) Depression (~1989) Osteoarthritis of knee (~2006) Mumps (~1958) Measles (~1958) Chicken pox (~1958) Hypertension (~1999) Obstructive sleep apnea of adult Primary insomnia Excessive daytime sleepiness Surgical History Anesthesia History of knee replacement (06/26/15) Status post colonoscopy (~2003) Status post endoscopy (~2002) Status post endoscopy (~2003) Status post cholecystectomy (~2004) Status post delivery (~1985) Status post delivery (~1982) S/P total knee arthroplasty Family History Father Cancer Hypertension Grandmother Cancer Mother Multiple sclerosis Social History details: [place] in [place] lives independently: Yes caregiver/support person: No housing: apartment Smoking Status: Former smoker Meds Home Medications and Allergies Home Medications Medication Instructions Recorded Confirmed Type cholecalciferol (vitamin D3) 125 5,000 unit PO DAILY 09/23/17 02/17/23 History mcg (5,000 unit) capsule Respironics DreamStation CPAP #1 ea 05/11/18 02/17/23 History albuterol sulfate 90 mcg/actuation 1 puff inhalation Q4H PRN 03/26/20 02/23/23 Rx aerosol inhaler (Proventil HFA) shortness of breath or wheezing #1 inh biotin 5 mg capsule 5 mg PO DAILY 11/17/21 02/17/23 History famotidine 20 mg tablet 20 mg PO BEDTIME #90 tabs 09/23/22 02/17/23 Rx (Zantac-360 (famotidine)) sodium,potassium,mag sulfates 17.5 See Rx Instructions PO .COMPLEX 12/24/22 02/17/23 Rx gram-3.13 gram-1.6 gram oral soln #354 mL (Suprep Bowel Prep Kit) citalopram 10 mg tablet 10 mg PO DAILY #90 tabs 01/20/23 02/17/23 Rx lisinopril 2.5 mg tablet 2.5 mg PO DAILY #90 tabs 01/25/23 02/23/23 Rx hydrochlorothiazide 50 mg tablet 50 mg PO DAILY #90 tabs 02/15/23 02/23/23 Rx ketoconazole 2 % topical cream 1 applic topical DAILY #30 grams 02/17/23 02/17/23 Rx Allergies Allergy/AdvReac Type Severity Reaction Status Date / Time No Known Drug Allergies Allergy Verified 02/17/23 11:41 Exam Vital Signs (past 8 hours): - 02/23/23 07:50 Temperature 97.5 F L Pulse Rate 64 Respiratory Rate 21 Blood Pressure 166/94 H Pulse Oximetry 98 Oxygen Delivery Method Room Air Oxygen Delivery Method Room Air Narrative Exam Narrative: General adult woman alert oriented no acute distress Chest nonlabored respiration Extremities warm well perfused Assessment & Plan Assessment and plan (1) Esophageal dysphagia: Status: Acute Assessment & Plan narrative: 67-year-old woman with a history of esophageal dysphagia and colonic polyps here for screening colonoscopy and esophagoduodenoscopy with possible dilation. TTechnical details were discussed. Risks, benefits, alternatives explained. Risks including but not limited to myocardial infarction, aspiration, bleeding, pain, missed lesion, incomplete examination, need for further radiographic studies, intestinal injury, and need for major abdominal surgery were discussed. All questions were answered to their satisfaction, and they are in agreement with this plan.
--- NOTE | 2023-02-23 08:11 | PM.OP.EC ---
Operative Date/Time/Diagnoses Date of procedure: 02/23/23 Time of procedure: 08:11 Pre-op diagnosis: History of colonic polyps History eosinophilic esophagitis Procedure & Clinicians Study performed: Esophagoduodenoscopy and colonoscopy Same procedure as scheduled: Yes Indications: 67-year-old woman personal history of colonic polyps and eosinophilic esophagitis here for EGD and colonoscopy Surgeon: Dov Salas Procedure Notes Procedure in detail: The history and physical was performed/updated and the patient is ASA class is 2. The procedure was discussed in detail with the patient. Potential risks complications including infection, bleeding, missed diagnosis, perforation, need for surgery, and were explained. Their questions were answered and informed consent was obtained. Patient placed in left lateral decubitus position. Time out was performed. Procedural sedation was administered by Anesthesia. A bite block was placed. the scope was inserted into the mouth and advanced through the esophagus and into the stomach. the pylorus was intubated and the duodenum was examined to the 2nd portion.. The scope was retroflexed within the stomach. The stomach was then decompressed and scope pulled back to the GE junction. The scope was then removed Examination began with a thorough inspection of the perianal area there was no evidence of fissures, fistulae, external hemorrhoids or cutaneous malignancy. The colonoscopy scope was then placed into the anal canal and was advanced to the cecum, which was identified by the ileocecal valve, the appendiceal orifice and the confluence of the taenia. The scope was then slowly withdrawn examining colon thoroughly in all directions, irrigating it of any residual stool. FINDINGS -sigmoid colon polyps x2. Polyps 3-5 mm both removed with biopsy forceps -internal hemorrhoids -no esophageal stricture. Esophagus unremarkable biopsies performed with forceps The patient tolerated the procedure well. They will be discharged once criteria are met. The prep was of good/excellent quality. The withdrawl time was 8 minutes. Specimen(s): other (Esophageal biopsy, sigmoid colonic polyps x2) Impression: Colonic polyps x2 No esophageal dilation necessary Post-procedure Plan for aftercare: Follow-up is dependent on pathology findings. Disposition: same day surgery
[2023-02-23 08:40] VITALS: BP 111/72; PULSE 59; RESP 15; TEMP 36.7; O2SAT 96
[2023-02-23 08:43] VITALS: BP 103/67; PULSE 58; RESP 15; O2SAT 98
[2023-02-23 08:47] VITALS: BP 128/90; PULSE 62; RESP 13; O2SAT 96
[2023-02-23 08:50] VITALS: BP 155/96; PULSE 56; RESP 11; O2SAT 98
== END 2023-02-23 09:00 | disposition home or self-care (01) ==
PROVIDERS: PCP Family Medicine; Referring Provider Surgery; Visit Provider Surgery
PROC: 0DJ08ZZ Inspection of Upper Intestinal Tract, Via Natural or Artificial Opening Endoscopic (ICD-10-PCS; CPT 43235; principal; 2023-02-23 08:15)
PROC: 0DJD8ZZ Inspection of Lower Intestinal Tract, Via Natural or Artificial Opening Endoscopic (ICD-10-PCS; CPT 45378; 2023-02-23 08:15)
DX: Z12.11 Encounter for screening for malignant neoplasm of colon (principal); Z86.010 Personal history of colon polyps; Z87.19 Personal history of other diseases of the digestive system; K64.8 Other hemorrhoids; D12.5 Benign neoplasm of sigmoid colon
CPT/HCPCS: 45380; 43239

== ENCOUNTER → 2023-05-23 08:07 | Outpatient (CLI) | payer MEDICARE, OTHER, SELFPAY ==
[2023-05-23 08:16] LABS: Alanine Aminotransferase 16 IU/L (<35); Aspartate Aminotransferase 27 IU/L (14-36); HEMOLYSIS < 15 (0-50); Triglycerides 80 mg/dL (35-150)
[2023-05-23 08:27] LABS: Albumin 4.1 g/dL (3.5-5.0); Albumin Globulin Ratio 1.4 (1.0-2.8); Alkaline Phosphatase 70 U/L (38-126); BUN Creatinine Ratio 21.7 (6-22); Bilirubin Total 0.8 mg/dL (0.2-1.3); Blood Urea Nitrogen 15 mg/dL (7-17); Calcium 9.5 mg/dL (8.4-10.2); Carbon Dioxide 27 mmol/L (22-32); Chloride 106 mmol/L (98-107); Estimated Glomerular Filt Rate > 60 mL/min (>60); Glucose 110 mg/dL (80-110); Potassium 3.8 mmol/L (3.4-5.1); Sodium 139 mmol/L (137-145); Total Protein 7.1 g/dL (6.3-8.2)
[2023-05-23 08:29] LABS: Cholesterol 224 mg/dL (140-199); HDL Cholesterol 94 mg/dL (40-60); LDL Cholesterol Calculated 114 mg/dL (<100)
[2023-05-23 08:43] LABS: Creatinine Urine Random 269.3 mg/dL
[2023-05-23 08:52] LABS: Microalbumin Urine Random < 0.6 mg/dL (0-1.6)
== END ==
LOC: LAB 08:09
PROVIDERS: PCP Family Medicine; Referring Provider Family Medicine; Visit Provider Family Medicine
DX: I10 Essential (primary) hypertension (principal)
CPT/HCPCS: 80053; 80061; 82043; 82570

== ENCOUNTER → 2023-09-02 10:17 | Outpatient (CLI) | payer MEDICARE, OTHER, SELFPAY ==
[2023-09-02 11:21] LABS: Cholesterol 236 mg/dL (140-199); HDL Cholesterol 90 mg/dL (40-60); LDL Cholesterol Calculated 128 mg/dL (<100); Triglycerides 90 mg/dL (35-150)
== END ==
PROVIDERS: PCP Family Medicine; Referring Provider Family Medicine; Visit Provider Family Medicine
DX: E78.5 Hyperlipidemia, unspecified (principal)
CPT/HCPCS: 36415; 80061

== ENCOUNTER → 2023-11-03 09:43 | Outpatient (CLI) | payer MEDICARE, OTHER, SELFPAY ==
--- NOTE | 2023-11-03 09:45 | DI.MG.S_ITS ---
BILATERAL DIGITAL SCREENING MAMMOGRAM 3D/2D WITH CAD POST LUMPECTOMY: 11/03/2023 CLINICAL: Routine screening. Personal history of right breast cancer. Comparison is made to exams dated: 10/28/2022 mammogram, 10/22/2021 mammogram, and 10/21/2020 mammogram - [facility]. Both breasts are almost entirely fatty (category a/<25% glandular tissue). Current study was also evaluated with a Computer Aided Detection (CAD) system. There are benign post operative findings in the right breast. No significant masses, calcifications, or other findings are seen in either breast. There has been no significant interval change. IMPRESSION: BENIGN There is no mammographic evidence of malignancy. A 1 year screening mammogram is recommended. This exam was interpreted at Station ID: [id number]. NOTE: For mammograms, a report in lay terms will be sent to the patient. Approximately 15% of breast malignancies will not be visualized mammographically. In the management of a palpable breast mass, a negative mammogram must not discourage biopsy of a clinically suspicious lesion. Electronically Signed By: Conner Ortega M.D. [facility] [place]:11/03/2023 14:43:43 copy to: Arlet Dominguez M.D. letter sent: Normal Exam ACR BI-RADS Category 2: Benign Finding(s) 3342F
[2023-11-03 10:42] LABS: Cholesterol 204 mg/dL (140-199); HDL Cholesterol 102 mg/dL (40-60); LDL Cholesterol Calculated 83 mg/dL (<100); Triglycerides 95 mg/dL (35-150)
== END ==
PROVIDERS: PCP Family Medicine; Referring Provider Family Medicine; Visit Provider Family Medicine
DX: Z12.31 Encounter for screening mammogram for malignant neoplasm of breast (principal); E78.5 Hyperlipidemia, unspecified; R92.313 Mammographic fatty tissue density, bilateral breasts; Z85.3 Personal history of malignant neoplasm of breast
CPT/HCPCS: 36415; 77063; 77067; 80061

== ENCOUNTER → 2024-03-22 09:48 | Outpatient (CLI) | payer MEDICARE, OTHER, SELFPAY ==
[2024-03-22 10:52] LABS: Alanine Aminotransferase 28 IU/L (<35); Albumin 4.7 g/dL (3.5-5.0); Albumin Globulin Ratio 1.9 (1.0-2.8); Alkaline Phosphatase 81 U/L (38-126); Aspartate Aminotransferase 35 IU/L (14-36); BUN Creatinine Ratio 21.3 (6-22); Bilirubin Total 0.5 mg/dL (0.2-1.3); Blood Urea Nitrogen 17 mg/dL (7-17); Calcium 9.6 mg/dL (8.4-10.2); Carbon Dioxide 33 mmol/L (22-32); Chloride 101 mmol/L (98-107); Cholesterol 185 mg/dL (140-199); Estimated Glomerular Filt Rate > 60 mL/min (>60); Globulin 2.5 g/dL (1.7-4.1); Glucose 95 mg/dL (80-110); HDL Cholesterol 97 mg/dL (40-60); HEMOLYSIS < 15 (0-50); LDL Cholesterol Calculated 78 mg/dL (<100); Potassium 4.1 mmol/L (3.4-5.1); Sodium 139 mmol/L (137-145); Total Protein 7.2 g/dL (6.3-8.2); Triglycerides 52 mg/dL (35-150)
[2024-03-22 11:30] LABS: Creatinine Urine Random 77.39 mg/dL
[2024-03-22 11:35] LABS: Microalbumin Urine Random 0.6 mg/dL (0-1.6)
== END ==
LOC: LAB 09:50
PROVIDERS: PCP Family Medicine; Referring Provider Family Medicine; Visit Provider Family Medicine
DX: I10 Essential (primary) hypertension (principal)
CPT/HCPCS: 36415; 80053; 80061; 82043; 82570